=== PATIENT | female | born 2000 | race Caucasian/White ===

== ENCOUNTER 2021-08-08 21:54 | Emergency (ER) | payer MEDICAID, OTHER ==
[~2021-08-08] VITALS: Ht 167.6 cm; Wt 68.0 kg
[2021-08-08 21:54] VITALS: BP 127/77
== END 2021-08-09 03:11 | disposition left against medical advice (07) ==
LOC: ER 21:54
DX: R21 Rash and other nonspecific skin eruption (principal); Z53.21 Procedure and treatment not carried out due to patient leaving prior to being seen by health care provider